=== PATIENT | female | born 1990 | race African-American/Black ===

== ENCOUNTER 2019-02-23 15:51 | Emergency (ER) | payer SELFPAY ==
[2019-02-23] MEDS ORDERED: Bupivacaine 0.5% 10 ML VIAL ONE (16:05)
[2019-02-23] MEDS ORDERED: Acetaminophen/Codeine 30-300mg Tablet ONE (16:05)
== END 2019-02-23 16:10 | disposition home or self-care (01) ==
LOC: BURERS 15:51
DX: K02.9 Dental caries, unspecified (principal)
CPT/HCPCS: 99282; J3490

== ENCOUNTER 2019-07-23 18:13 | Emergency (ER) | payer SELFPAY | END 2019-07-23 18:57 | disposition home or self-care (01) | LOC: BURERS 18:13 | DX: J02.9 Acute pharyngitis, unspecified (principal) | CPT/HCPCS: 99281 ==